=== PATIENT | female | born 1995 | race Two or more races ===

== ENCOUNTER 2024-11-09 20:37 | Emergency (ER) | payer OTHER, SELFPAY ==
[2024-11-09 20:40] VITALS: BP 110/70; PULSE 79; RESP 18; TEMP 36.9; O2SAT 98
--- NOTE | 2024-11-09 20:44 | PD.EDRME ---
Rapid Medical Screening Exam RME Arrival date/time: 11/09/24 20:37 29-year-old female presents emergency department complaining of headache rash to face that started around 12 PM today. Patient denies any new soaps, detergents, lotions, new food, or exposure to chemicals. Chief Complaint: Allergic Reaction Time Seen by Provider: 11/09/24 20:43 Vital signs: Vital Signs Temperature 98.5 F 11/09/24 20:40 Pulse Rate 79 11/09/24 20:40 Respiratory Rate 18 11/09/24 20:40 Blood Pressure 110/70 11/09/24 20:40 Pulse Oximetry (%) 98 11/09/24 20:40 Oxygen Delivery Method Room Air 11/09/24 20:40 Vital signs reviewed by provider: Yes
[2024-11-09] MEDS: FAMOTIDINE 20 MG TABLET 40 MG PO (20:49)
[2024-11-09] MEDS: DiphenhydrAMINE ELIX 25 MG/10 ML UDC 50 MG PO (20:51)
--- NOTE | 2024-11-09 20:57 | EDNOTE_ITS ---
<Statement entered by Courtney Bliss MD - 11/20/24 17:38> As co-signing physician, I was present and available for consult prn. I concur with the plan and care as documented by the midlevel provider. ED Allergic Reaction RME/HPI General Chief complaint: Allergic Reaction Stated complaint: ALLERGIC REACTION Time Seen by Provider: 11/09/24 20:43 Arrival date/time: 11/09/24 20:37 RME / HPI RME / HPI narrative: 29-year-old female presents emergency department complaining of headache rash to face that started around 12 PM today. Patient denies any new soaps, detergents, lotions, new food, or exposure to chemicals. Patient denies any fever denies any other complaints or medications taken prior to arrival Related Data Previous Rx's ?Medication ?Instructions ?Recorded diphenhydramine HCl 50 mg tablet 50 mg PO TID PRN allergic reaction 11/09/24 (Benadryl Allergy) #30 tabs prednisone 50 mg tablet 50 mg PO QDAY #5 tabs 11/09/24 Allergies Allergy/AdvReac Type Severity Reaction Status Date / Time No Known Allergies Allergy Verified 11/09/24 20:39 Review of Systems Review of Systems Narrative Review of Systems: Review of system reviewed and within normal limits except mentioned in HPI ED Exam Narrative Physical exam: VITAL SIGNS: Reviewed. GENERAL APPEARANCE: Alert and interactive, follows commands, no acute distress, HEAD AND FACE: Non-traumatic. ENT: PERRL, pink conjunctivitis, eyelid no trauma, Mucous membrane moist. NECK: Supple, nontender, no nuchal rigidity. CHEST: No tenderness, no crepitus, no paradoxical movement, no retractions. LUNGS: Clear, well ventilated, symmetric, no rales, no wheezing, no ronchi, no stridor, good breath sounds bilaterally. HEART: Regular rate, regular rhythm, no murmur, no gallops. ABDOMEN: Soft, positive bowel sounds, nondistended, no guarding, nontender, no rebound, no masses, RECTAL: Deferred. GENITAL: Deferred. NEUROLOGICAL: Gross motor function intact sensory function intact, Appropriate for age. MUSCULOSKELETAL: low back nontender, full range of motion. EXTREMITIES: Nontender, full range of motion. SKIN: Color pink, dry, erythematous rashes noted in the face., no lacerations, no abrasions, no contusions. LYMPHATICS: Deferred. Course Quality Measures none Orders Category Date Time Status Insert IV NOW Care 11/09/24 21:02 Active CBC [CBC] Stat Lab 11/09/24 20:55 Completed CMP [Comprehensive Metabolic Panel] Stat Lab 11/09/24 20:55 Completed HCG Qualitative,Urine Stat Lab 11/09/24 21:01 Ordered IgE, Serum* Stat Lab 11/09/24 20:55 Received Dexamethasone Inj [Decadron Inj] Med 11/09/24 20:43 Discontinued 10 mg IM X1 ONE Dexamethasone Inj [Decadron Inj] Med 11/09/24 21:15 Discontinued 10 mg IVP X1 ONE DiphenhydrAMINE [Benadryl] Med 11/09/24 20:43 Discontinued 50 mg PO X1 ONE Famotidine [Pepcid] Med 11/09/24 20:43 Discontinued 40 mg PO X1 ONE LORazepam [Ativan Inj] Med 11/09/24 21:12 Discontinued 1 mg IVP X1 ONE Sodium Chloride 0.9% 1000 ml [Ns] 1,000 ml Med 11/09/24 21:12 Discontinued IV 999 mls/hr Vital Signs Vital signs: Vital Signs Temperature 98.5 F 11/09/24 20:40 Pulse Rate 79 11/09/24 20:40 Respiratory Rate 18 11/09/24 20:40 Blood Pressure 110/70 11/09/24 20:40 Pulse Oximetry (%) 98 11/09/24 20:40 Oxygen Delivery Method Room Air 11/09/24 20:40 Allergic Reaction MDM Narrative MDM Narrative:: 29-year-old female presents emergency department complaining of headache rash to face that started around 12 PM today. Patient denies any new soaps, detergents, lotions, new food, or exposure to chemicals. Patient denies any fever denies any other complaints or medications taken prior to arrival Patient received IV Decadron, Benadryl and Pepcid. After giving IV Decadron patient developed anxiety-like symptoms. Patient received Ativan IV. Prior to discharge patient's redness to the face is gone. I advised the patient to follow-up with PCP and for referral to kelly machine operator to identify the source of her allergy. Patient data External records reviewed:: None Clinical information provided by:: none Social determinants that could affect healthcare access:: none Patient has the following chronic illnesses:: None How is presenting disease/condition affected by chronic disease/condition?: no chronic disease Evaluation data The following diagnostics were reviewed and interpreted by me:: lab results Lab and/or radiology exams considered but not ordered:: None Interpretation Summary: Patient's workup all came back normal. Medications / Prescriptions Medications or Prescriptions considered but not ordered:: None Medication administrations:: Medication Administration History Discontinued Medications Dexamethasone Sodium Phosphate (Dexamethasone Sod Phos Inj 10 Mg/Ml Vial) 10 mg IM X1 ONE Stop: 11/09/24 20:44 Last Admin: 11/09/24 21:06 Dose: Not Given Documented By: CHRIST Non-Admin Reason: Cancelled by Provider Dexamethasone Sodium Phosphate (Dexamethasone Sod Phos Inj 10 Mg/Ml Vial) 10 mg IVP X1 ONE; Protocol Stop: 11/09/24 21:16 Last Admin: 11/09/24 21:06 Dose: 10 mg Documented By: CHRIST Diphenhydramine HCl (Diphenhydramine Elix 25 Mg/10 Ml Udc) 50 mg PO X1 ONE Stop: 11/09/24 20:44 Last Admin: 11/09/24 20:51 Dose: 50 mg Documented By: CHRIST Famotidine (Famotidine 20 Mg Tablet) 40 mg PO X1 ONE Stop: 11/09/24 20:44 Last Admin: 11/09/24 20:49 Dose: 40 mg Documented By: CHRIST Sodium Chloride (Ns) 1,000 mls @ 999 mls/hr IV .Q1H1M ONE Stop: 11/09/24 22:12 Last Infusion: 11/09/24 22:24 Dose: Infused Documented By: Admin: 11/09/24 21:13 Dose: 999 mls/hr Documented By: CHRIST Lorazepam (Lorazepam 2 Mg/Ml Vial) 1 mg IVP X1 ONE Stop: 11/09/24 21:13 Last Admin: 11/09/24 21:15 Dose: 1 mg Documented By: CHRIST Decadron, Pepcid, IV fluids, and lorazepam Benadryl Consultations Consultation(s) initiated? (list below): No Diagnosis Differential Diagnosis allergic reaction: allergic reaction, angioedema, contact dermatitis and viral enanthem Most likely diagnosis given after review of the tests above:: Allergic reaction Admission Indicated Admission indicated?: not indicated Explain why admission is indicated or not indicated:: None Admission Request Was there a request for admission?: No Disposition Plan Disposition Plan: Discharge Discharge Attestation Discharge Attestation: The patient and all family members were given an opportunity to ask questions and understood the discharge instructions. Discharge instructions specifically effects, indications for sooner follow up or return to the emergency department, and the expected course of current diagnosis. Patient condition: Stable Discharge Plan Plan Patient Disposition: HOME (Self Care) Disposition Comment: stable Prescriptions/Referrals Prescriptions/Med Rec: New prednisone 50 mg tablet 50 mg PO QDAY Qty: 5 0RF Benadryl Allergy 50 mg tablet 50 mg PO TID PRN (Reason: allergic reaction) Qty: 30 0RF Referrals: No Primary/Family,Physician [Primary Care Provider] - In 1 week Problem List Clinical Impression: Allergic reaction Patient/Caregiver Discharge Instructions Discharge Activity: activity as tolerated Education Materials: Allergy Overview Additional Instructions: Thank you for the opportunity for serving you today. You are stable for discharged . You are advised to: Follow-up with your PCP in 1 to 2 days and asked for referral to kelly machine operator Return to ED for worsening of symptoms Increase oral fluids Take medication as prescribed Print Language: [place] Stand Alone Forms: Allie Award Info., Patient Portal Info Letter REAGAN/MAGGIE Supervising Physician REAGAN/MAGGIE Supervising Physician: MD Kalyani
[2024-11-09] MEDS: DEXAMETHASONE SOD PHOS INJ 10 MG/ML VIAL IVP (21:06)
[2024-11-09 21:12] LABS: Basophils % (Auto) 1 % (0-2.5); Eosinophils # (Auto) 0.2 Thou/mm3 (0.0-0.5); Eosinophils % (Auto) 3 % (0-10); Hematocrit 40.6 % (36.0-46.0); Hemoglobin 14.1 g/dL (12.0-16.0); Immature Granulocytes % (Auto) 0 % (0-0); Immature Granulocytes Auto 0.01 Thou/mm3 (0.00-0.00); Lymphocytes # (Auto) 2.4 Thou/mm3 (1.0-4.8); Lymphocytes % (Auto) 36 % (10-50); Mean Corpuscular HGB Conc 34.7 g/dl (31.0-37.0); Mean Corpuscular Hemoglobin 30.5 pg (25.0-35.0); Mean Corpuscular Volume 88 fL (80-100); Monocytes # (Auto) 0.5 Thou/mm3 (0.0-0.8); Monocytes % (Auto) 7 % (0-12); Neutrophils # (Auto) 3.6 Thou/mm3 (1.8-7.7); Neutrophils % (Auto) 53 % (37-80); Nucleated Red Blood Cell % 0 /100 WBC (0); Platelet Count 271 Thou/mm3 (140-440); RDW Standard Deviation 38.7 fL (36.4-46.3); Red Blood Count 4.63 Miln/mm3 (4.00-5.20); White Blood Count 6.7 Thou/mm3 (3.6-11.0)
[2024-11-09] MEDS: SODIUM CHLORIDE 0.9% 1000 ML 1,000 ML 999 ML IV (21:13)
[2024-11-09] MEDS: LORazepam 2 MG/ML VIAL 1 MG IVP (21:15)
[2024-11-09 21:34] VITALS: BMI 24.3
[2024-11-09 21:37] LABS: Alanine Aminotransferase 14 U/L (10-49); Albumin, Serum 4.5 gm/dL (3.5-5.0); Anion Gap 11 (7-16); Aspartate Amino Transferase 22 U/L (0-34); BUN/Creatinine Ratio 11 Ratio (12-20); Bilirubin,Total 0.4 mg/dL (0.3-1.2); Blood Urea Nitrogen 9 mg/dL (9-23); Calcium 9.6 mg/dL (8.3-10.6); Carbon Dioxide 23.3 mMol/L (20.0-31.0); Chloride 106 mMol/L (98-107); Creatinine (Component) 0.8 mg/dL (0.6-1.3); Estimated Creatinine Clearance 106.6 mL/min (>60); Glucose 97 mg/dL (74-106); Osmolality,Calculated 278 (275-295); Potassium 3.9 mMol/L (3.4-5.1); Sodium 140 mMol/L (136-145); Total Protein 7.1 gm/dL (5.7-8.2); eGFR > 60 See Note
[2024-11-09 21:38] LABS: Albumin/Globulin Ratio 1.7 (1.2-2.2); Alkaline Phosphatase 32 U/L (46-116); Calcium (Corrected) 9.6 mg/dL (8.5-10.1); Globulin 2.6 gm/dL (2.3-3.5)
[2024-11-09 22:56] VITALS: BP 111/68; PULSE 77; RESP 16; TEMP 36.7; O2SAT 99
[2024-11-14 06:26] LABS: IgE, Serum* 9 kU/L (114 OR LESS)
== END 2024-11-09 22:56 | disposition home or self-care (01) ==
PROVIDERS: Nurse Practitioner Family; Emergency Provider Emergency Medicine
DX: R21 Rash and other nonspecific skin eruption (principal); R51.9 Headache, unspecified
CPT/HCPCS: 36415; 80053; 81025; 82785; 85025; 96361; 96374; 99284; J1100; J2060; J7030; A9270

== ENCOUNTER 2025-10-06 23:53 | Emergency (ER) | payer OTHER, SELFPAY ==
[2025-10-06 23:54] VITALS: BMI 24.3
[2025-10-07 00:02] VITALS: BP 104/70; PULSE 88; RESP 18; TEMP 36.7; O2SAT 98
[2025-10-07 00:24] VITALS: BP 107/68; PULSE 89; RESP 16; TEMP 36.8; O2SAT 99
--- NOTE | 2025-10-07 00:31 | PD.EDABDPN ---
ED Abdominal Pain RME/HPI General Chief Complaint: Urogenital-Female Stated complaint: NAUSEA VOMITING AND LOW ABD PAIN Time seen by provider: 10/07/25 00:19 Arrival date/time: 10/06/25 23:53 RME / HPI RME / HPI narrative: Dr. Walsh?s Main ED Evaluation: 29yo female presenting with progressively worsening LLQ pain x 2030. Associated several bouts of nonbloody emesis. No diarrhea or dysuria. No fever or chills. PMH/PSH unremarkable. Social history unremarkable. NKA. Related Data Previous Rx's ?Medication ?Instructions ?Recorded diphenhydramine HCl 50 mg tablet 50 mg PO TID PRN allergic reaction 11/09/24 (Benadryl Allergy) #30 tabs prednisone 50 mg tablet 50 mg PO QDAY #5 tabs 11/09/24 Allergies Allergy/AdvReac Type Severity Reaction Status Date / Time No Known Allergies Allergy Verified 10/06/25 23:58 Review of Systems Review of Systems Systems Reviewed: All systems reviewed, normal except as documented Past Medical History Past Medical History CARDIAC: Negative Congestive Heart Failure RESPIRATORY: Negative Chronic Obstructive Pulmonary Disease (COPD) GENITOURINARY: Negative Renal Disease ENDOCRINE: Negative Diabetes Mellitus Type 1 or Diabetes Mellitus Type 2 Social History SMOKING STATUS: Never smoker ED Exam Narrative Physical exam: GENERAL APPEARANCE: alert and oriented x 4, complains of LLQ pain, in moderate distress VITALS: All vitals were reviewed and the pulse ox is 99% on room air, which is normal according to my interpretation. HEENT: Normocephalic, atraumatic; pupils equal, round, reactive to light; EOMI; mucous membranes pink, moist; oropharynx clear NECK: Supple LUNGS: CTABL; no wheezes, no rales, no rhonchi HEART: Regular rate, regular rhythm; normal S1, S2; no murmurs ABDOMEN: non distended; soft, marked tenderness at the LLQ with localized peritoneal findings BACK: no CVA tenderness EXTREMITIES: atraumatic; no edema NEUROLOGIC: awake; alert and oriented x4; cranial nerves II-XII grossly intact; no focal sensory or motor deficits PSYCHIATRIC: appropriate mood and affect SKIN: warm, dry, normal color; no rashes Course Quality Measures none Orders Category Date Time Status IV [Insert IV] NOW Care 10/07/25 00:[address] abdomen pelvis wo con Stat Exams 10/07/25 00:48 Taken US pelvic complete Stat Exams 10/07/25 02:49 Taken Beta HCG,Quantitative Stat Lab 10/07/25 00:27 Completed CBC [CBC] Stat Lab 10/07/25 00:27 Completed CMP [Comprehensive Metabolic Panel] Stat Lab 10/07/25 00:27 Completed Urinalysis, C/S if Indicated Stat Lab 10/07/25 00:30 Completed Morphine* Inj Med 10/07/25 00:38 Discontinued 4 mg IVP X1 ONE Ondansetron Inj [Zofran Inj] Med 10/07/25 00:38 Discontinued 4 mg IVP X1 ONE Sodium Chloride 0.9% 1000 ml [Ns] 1,000 ml Med 10/07/25 00:19 Discontinued IV 999 mls/hr Sodium Chloride 0.9% 1000 ml [Ns] 1,000 ml Med 10/07/25 03:32 Discontinued IV 999 mls/hr Vital Signs Vital signs: Vital Signs Temperature 98.1 F 10/07/25 00:02 Pulse Rate 88 10/07/25 00:02 Respiratory Rate 18 10/07/25 00:02 Blood Pressure 104/70 10/07/25 00:02 Pulse Oximetry (%) 98 10/07/25 00:02 Oxygen Delivery Method Room Air 10/07/25 00:02 Abdominal Pain MDM MDM Narrative MDM Narrative:: Scribe Attestation: 10/07/25 Rose Palomares am scribing for and in the presence of Dr. Walsh. 29yo female presenting with progressively worsening LLQ pain x 2030. Associated several bouts of nonbloody emesis. No diarrhea or dysuria. Please see PE findings. CT abdomen pelvis with evidence of likely right dermoid cyst measuring 5 cm. Patient hydrated with saline, given low dose narcotic analgesics/antiemetics with [id number] relief. Pelvis US performed and confirms right adnexal cystic lesion, although there appears to be bilateral reduction in arterial flow, ?physiological. Will await final reading by radiologist and formulate dispo. Dx: acute abdominal pain, ovarian cystic disease with ?rupture Patient data External records reviewed:: [facility] previous records (Per chart review, patient has no relevant previous ED visits.) Clinical information provided by:: patient Social determinants that could affect healthcare access:: none Patient has the following chronic illnesses:: none How is presenting disease/condition affected by chronic disease/condition?: no chronic disease Evaluation data The following diagnostics were reviewed and interpreted by me:: lab results and radiology exam(s) Lab and/or radiology exams considered but not ordered:: none Interpretation Summary: CT scan of the abdomen and pelvis without intravenous contrast (axial sections with sagittal and coronal reformats) October 07, 2025 0121 hours Clinical History: Lower abdomen pain with nausea / vomiting Comparison: No prior study is available for comparison at the time of interpretation Findings: The liver, gallbladder, pancreas, spleen, kidneys and adrenals are unremarkable on this noncontrast study. No evidence of bowel obstruction. The appendix is within normal limits (images [id number]). There is no mesenteric or retroperitoneal adenopathy. The aorta is unremarkable. The urinary bladder is partially distended and shows mild wall thickening; possibility of cystitis cannot be excluded. The uterus is unremarkable. There is a 4 cm dermoid cyst in right ovary. There is mesenteric fat stranding in the right lower quadrant adjacent to the right ovary, which may be due to ruptured follicle versus torsion of the dermoid. There is no free fluid or free air. There is suggestion of pelvic floor laxity with possible rectocele. The osseous structures are unremarkable. The lung bases are clear. Please note that evaluation of soft tissue/vascular structures and bowel loops is limited due to absence of IV and oral contrast. Impression: 1. No evidence of appendicitis, bowel obstruction or free air. 2. A 4 cm dermoid cyst in the right ovary. 3. Mesenteric fat stranding in the right lower quadrant adjacent to the right ovary, which may be due to ruptured follicle versus torsion of the dermoid. Recommend further evaluation with Doppler sonography, if clinically indicated. 4. Partially distended urinary bladder with mild wall thickening; possibility of cystitis cannot be excluded. 5. Other findings as described above. Suggest clinical correlation and follow up accordingly. This report has been electronically signed by: Wilver Wong MD. Medications / Prescriptions Medications or Prescriptions considered but not ordered:: none Medication administrations:: Medication Administration History Discontinued Medications Sodium Chloride (Ns) 1,000 mls @ 999 mls/hr IV .Q1H1M ONE Stop: 10/07/25 01:19 Last Infusion: 10/07/25 02:37 Dose: Infused Documented By: Admin: 10/07/25 00:40 Dose: 999 mls/hr Documented By: JOSE Sodium Chloride (Ns) 1,000 mls @ 999 mls/hr IV .Q1H1M ONE Stop: 10/07/25 04:32 Last Infusion: 10/07/25 05:15 Dose: Infused Documented By: Admin: 10/07/25 03:44 Dose: 999 mls/hr Documented By: JOSE Morphine Sulfate (Morphine Sulf Inj 4 Mg/Ml Vial) 4 mg IVP X1 ONE Stop: 10/07/25 00:39 Last Admin: 10/07/25 00:47 Dose: 4 mg Documented By: JOSE Ondansetron HCl (Ondansetron Inj 2 Mg/Ml Inj 2 Ml) 4 mg IVP X1 ONE; Protocol Stop: 10/07/25 00:39 Last Admin: 10/07/25 00:46 Dose: 4 mg Documented By: JOSE see above Consultations Consultation(s) initiated? (list below): No Diagnosis Differential diagnosis abdominal pain: abdominal pain, diverticulitis and other (ovarian torsion, ruptured ovarian cyst) Most likely diagnosis given after review of the tests above:: final dx pending at sign out Admission Indicated Admission indicated?: not indicated Admission Request Was there a request for admission?: No Disposition Plan Disposition Plan: other (specify) (Signed out to Dr. Bliss at 0600. ) Discharge Plan Prescriptions/Referrals Prescriptions/Med Rec: No Action prednisone 50 mg tablet 50 mg PO QDAY Qty: 5 0RF Benadryl Allergy 50 mg tablet 50 mg PO TID PRN (Reason: allergic reaction) Qty: 30 0RF Referrals: No Primary/Family,Physician [Primary Care Provider] - In 1 week Problem List Clinical Impression: Abdominal pain, Cystic disease of ovaries Patient/Caregiver Discharge Instructions Print Language: Citizen Of [place]
[2025-10-07 00:38] LABS: Collection Type, Urine Clean Catch
[2025-10-07] MEDS: SODIUM CHLORIDE 0.9% 1000 ML 1,000 ML 999 ML IV ×2 (00:40→03:44)
[2025-10-07 00:41] LABS: Basophils # (Auto) 0.1 Thou/mm3 (0.0-0.2); Basophils % (Auto) 1 % (0-2.5); Eosinophils # (Auto) 0.2 Thou/mm3 (0.0-0.5); Eosinophils % (Auto) 3 % (0-10); Hematocrit 36.5 % (36.0-46.0); Hemoglobin 12.5 g/dL (12.0-16.0); Immature Granulocytes Auto 0.01 Thou/mm3 (0.00-0.00); Lymphocytes # (Auto) 2.1 Thou/mm3 (1.0-4.8); Lymphocytes % (Auto) 34 % (10-50); Mean Corpuscular HGB Conc 34.2 g/dl (31.0-37.0); Mean Corpuscular Hemoglobin 30.1 pg (25.0-35.0); Mean Corpuscular Volume 88 fL (80-100); Monocytes # (Auto) 0.4 Thou/mm3 (0.0-0.8); Monocytes % (Auto) 7 % (0-12); Neutrophils # (Auto) 3.4 Thou/mm3 (1.8-7.7); Neutrophils % (Auto) 55 % (37-80); Nucleated Red Blood Cell # 0.00 Thou/mm3 (0.00-0.00); Nucleated Red Blood Cell % 0 /100 WBC (0); Platelet Count 236 Thou/mm3 (140-440); RDW Standard Deviation 38.4 fL (36.4-46.3); Red Blood Count 4.15 Miln/mm3 (4.00-5.20); White Blood Count 6.1 Thou/mm3 (3.6-11.0)
[2025-10-07] MEDS: ONDANSETRON INJ 2 MG/ML INJ 2 ML 4 MG IVP (00:46)
[2025-10-07] MEDS: MORPHINE SULF INJ 4 MG/ML VIAL IVP (00:47)
--- NOTE | 2025-10-07 00:48 | XR_ITS ---
Examination: CT abdomen and pelvis without contrast. Coronal 3-D reconstructions. Sagittal 2-D reconstructions. Date and time of exam: October 07, 2025, 0121 hours INDICATIONS: Lower abdominal pain and vomiting today CTDI: vol (mGy): 8.58 DLP: (mGycm): 440 Technique: Axial images of the abdomen have been obtained, 3 mm slice thickness Intravenous contrast material has not been administered. Low dose protocols were performed. One or more of the following dose reduction techniques were used; automated exposure control, adjustment of the mA and/or KV according to patient size, use of iterative reconstruction technique. Findings: No focal liver or splenic lesions No gallstones No pancreatic or adrenal mass No renal or ureteral calculi Tiny fat-containing umbilical hernia Aorta normal size Normal appendix No bowel obstruction Retroverted uterus Fat-containing right pelvic dermoid tumor at least 4 cm I do not visualize definite inflammatory change in the pelvis Bladder intact IMPRESSION: Normal appendix 4 cm right pelvic dermoid tumor
[2025-10-07 00:59] LABS: Alanine Aminotransferase 14 U/L (10-49); Albumin, Serum 4.6 gm/dL (3.5-5.0); Albumin/Globulin Ratio 2.3 (1.2-2.2); Alkaline Phosphatase 30 U/L (46-116); Anion Gap 8 (7-16); Aspartate Amino Transferase 19 U/L (0-34); BUN/Creatinine Ratio 11 Ratio (12-20); Beta HCG,Quantitative 1 mIU/mL (<5.0); Bilirubin,Total 0.4 mg/dL (0.3-1.2); Blood Urea Nitrogen 9 mg/dL (9-23); Calcium 8.9 mg/dL (8.3-10.6); Calcium (Corrected) 8.9 mg/dL (8.5-10.1); Carbon Dioxide 24.9 mMol/L (20.0-31.0); Chloride 109 mMol/L (98-107); Creatinine (Component) 0.8 mg/dL (0.6-1.3); Estimated Creatinine Clearance 106.6 mL/min (>60); Globulin 2.0 gm/dL (2.3-3.5); Glucose 94 mg/dL (74-106); Osmolality,Calculated 281 (275-295); Potassium 3.7 mMol/L (3.4-5.1); Sodium 142 mMol/L (136-145); Total Protein 6.6 gm/dL (5.7-8.2); eGFR > 60 See Note
[2025-10-07 01:01] LABS: Bilirubin,Urine Negative (Negative); Blood,Urine 3+ (Negative); Clarity,Urine Turbid (Clear/Hazy); Culture Indicated,Urine Not Indicated; Glucose, Urine Negative (Negative); Ketones,Urine Negative (Negative); Leukocyte Esterase,Urine Positive (Negative); Nitrite,Urine Negative (Negative); PH,Urine 6.5 (5.0-7.0); Protein,Urine 1+ (Neg - Trace); RBC,Urine 2202 /hpf (0-3); Specific Gravity,Urine 1.029 (1.001-1.035); Squamous Epithelial Cell,Urine 3 /hpf (0-5); Urobilinogen,Urine Negative mg/dL (0.0-1.0); WBC,Urine 3 /hpf (0-5)
[2025-10-07 01:10] LABS: Color,Urine Orange (Lt Yel-Yel)
[2025-10-07 01:41] VITALS: BP 104/67; PULSE 84; RESP 17; TEMP 36.7; O2SAT 99
--- NOTE | 2025-10-07 02:49 | XR_ITS ---
Examination: Pelvic ultrasound, transabdominal, complete Technique: Transabdominal ultrasound of the pelvis performed using grayscale imaging Date and time of exam: October 07, 2025, 0408 hours INDICATIONS: Nausea vomiting pelvic pain onset today FINDINGS: Uterus 9.0 cm retroflexed endometrial stripe 0.4 cm No uterine mass or intrauterine gestation Right ovary 2.7 cm arterial flow Left ovary 3.5 cm arterial flow IMPRESSION: No uterine mass or intrauterine gestation Given the CT findings of 4 cm right dermoid cyst October 07, 2025 0121 hours recommend repeat pelvic sonography both transvaginal and transabdominal in the a.m.
[2025-10-07 04:33] VITALS: BP 111/69; PULSE 75; RESP 17; TEMP 36.8; O2SAT 100
--- NOTE | 2025-10-07 06:47 | PD.EDADDENDU ---
Emergency Room Addendum Addendum Narrative: 0600: Care assumed from Dr. Sanchez, the previous shift emergency physician. Past medical, surgical, social and family history reviewed. Vitals and home medications reviewed. Results and treatment plan discussed. I will assume the care of the patient at this time and will follow the patient, pending pelvic ultrasound. Please refer to the emergency department record for history and examination from initial visit. Pelvic ultrasound is unremarkable as noted below. Patient is stable to be discharged home. RADIOLOGY RESULTS: Telerad Preliminary Report Draft Patient: GOVIND MORALES. Record#: [id number] Birthdate: 1995 Age/Sex: 29 / F Location: [facility] Attending Dr: Ordering Physician: Date of Service: Procedure(s): Accession Number(s): cc: ~ Pelvic ultrasound (transabdominal). October 07, 2025 0408 hours Clinical history: R/O torsion. Technique: Real-time, grayscale, transabdominal pelvic ultrasound was performed using Duplex scanning including arterial inflow, venous outflow, color and spectral Doppler. Correlated with the prior CT study dated 10/07/2025 Findings: The uterus is normal in size measuring 8.9 x 4.5 x 5.0 cm. The endometrium is unremarkable and measures 0.41cm. The right ovary measures 2.6 x 1.5 x 1.7cm. Dermoid cyst is noted in the right ovary previously confirmed on CT study, the measurements not provided. The left ovary measures 3.5 x 1.5 x 2.3 cm and is unremarkable. Both ovaries demonstrate color flow and spectral waveforms on Doppler evaluation. There is no adnexal mass. There is no free fluid on the submitted images. Impression: No defined evidence of ovarian torsion. Other findings as described above. Report Electronically Signed By: Yina Escobedo 10/07/2025 6:55:36 AM
--- NOTE | 2025-10-07 06:56 | PRELIM_ITS ---
Pelvic ultrasound (transabdominal). October 07, 2025 0408 hours Clinical history: R/O torsion. Technique: Real-time, grayscale, transabdominal pelvic ultrasound was performed using Duplex scanning including arterial inflow, venous outflow, color and spectral Doppler. Correlated with the prior CT study dated 10/07/2025 Findings: The uterus is normal in size measuring 8.9 x 4.5 x 5.0 cm. The endometrium is unremarkable and measures 0.41cm. The right ovary measures 2.6 x 1.5 x 1.7cm. Dermoid cyst is noted in the right ovary previously confirmed on CT study, the measurements not provided. The left ovary measures 3.5 x 1.5 x 2.3 cm and is unremarkable. Both ovaries demonstrate color flow and spectral waveforms on Doppler evaluation. There is no adnexal mass. There is no free fluid on the submitted images. Impression: No defined evidence of ovarian torsion. Other findings as described above. Report Electronically Signed By: Yina Escobedo 10/07/2025 6:55:36 AM [EST]
--- NOTE | 2025-10-07 07:47 | PC.NURSE ---
Patient assessed, she stated her abdominal pain is almost completely gone and feels ready to go home, I explained to her her Ct and US results need to return before we let her go home, pt verbalized understanding. Currently she is in bed resting.
[2025-10-07 08:00] VITALS: BP 106/72; PULSE 74; RESP 16; TEMP 36.6; O2SAT 98
[2025-10-07 08:07] VITALS: BP 106/72; PULSE 74; RESP 16; TEMP 36.6; O2SAT 98
== END 2025-10-07 08:05 | disposition home or self-care (01) ==
PROVIDERS: Emergency Provider Emergency Medicine
DX: D27.0 Benign neoplasm of right ovary (principal); N83.201 Unspecified ovarian cyst, right side
CPT/HCPCS: 36415; 74176; 76856; 80053; 81001; 84702; 85025; 96361; 96374; 96375; 99283; J2270; J2405; J7030